=== PATIENT | female | born 1940 | race Caucasian/White ===

== ENCOUNTER 2017-05-27 08:13 | Emergency (ER) | payer MEDICARE, OTHER ==
[~2017-05-27] VITALS: Ht 162.6 cm; Wt 77.2 kg
[~2017-05-27 08:13] MED LIST: CARV3.122 PO; LISI40TA4 PO; LORA0.5T PO; MELA3TAB PO; SYN0.088T PO; TRAM50TA2 PO
[2017-05-27] MEDS ORDERED: ampicillin/sulbac 3gm/NS 100ml 100 ML IV STA (08:22)
[2017-05-27] MEDS ORDERED: gentamicin inj 350 MG in normal saline 100ml IV soln 100 ML IV STA (08:22)
[2017-05-27] MEDS ORDERED: furosemide 10 MG/1 ML 10ml inj IV ONE (08:25)
[2017-05-27 08:38] LABS: BASOPHILS % (AUTO) 0.2 % (0-1); EOSINOPHILS # (AUTO) 0.1 X10'3 (0-0.9); EOSINOPHILS % (AUTO) 1.7 % (0-6); HEMATOCRIT 38.8 % (35.0-45.0); HEMOGLOBIN 12.8 g/dl (12.0-16.0); LYMPHOCYTES # (AUTO) 0.9 X10'3 (1.1-4.8); LYMPHOCYTES % (AUTO) 14.2 % (21-51); MEAN CORPUSCULAR HEMOGLOBIN 28.1 PG (27.0-31.0); MEAN CORPUSCULAR HGB CONC 32.8 % (33.0-36.5); MEAN CORPUSCULAR VOLUME 85.7 FL (78-98); MEAN PLATELET VOLUME 8.7 FL (7.4-10.4); MONOCYTES # (AUTO) 0.5 X10'3 (0-0.9); NEUTROPHILS # (AUTO) 4.8 X10'3 (1.8-7.7); NEUTROPHILS % (AUTO) 75.9 % (42-75); PLATELET COUNT 131 X10'3 (140-440); RED BLOOD COUNT 4.53 X10'6 (4.20-5.60); RED CELL DISTRIBUTION WIDTH 18.1 % (11.5-14.5); WHITE BLOOD COUNT 6.3 X10'3 (4.5-11.0)
[2017-05-27 08:53] VITALS: BP 147/77
[2017-05-27 09:06] LABS: ALANINE AMINOTRANSFERASE 46 U/L (12-78); ALBUMIN 3.4 G/DL (3.4-5.0); ALBUMIN/GLOBULIN RATIO 0.9 (1.1-1.5); ALKALINE PHOSPHATASE 186 IU/L (46-116); ANION GAP 12 (8-16); ASPARTATE AMINO TRANSFERASE 32 U/L (10-37); BILIRUBIN,TOTAL 0.9 MG/DL (0.1-1.0); BLOOD UREA NITROGEN 24 MG/DL (7-18); BUN/CREATININE RATIO 25.5 (6.6-38.0); CALCIUM 9.2 MG/DL (8.5-10.1); CHLORIDE 109 MMOL/L (99-107); CREATININE 0.94 MG/DL (0.40-0.90); GLUCOSE 128 MG/DL (70-104); POTASSIUM 4.4 MMOL/L (3.5-5.1); SODIUM 146 MMOL/L (135-145); TOTAL CARBON DIOXIDE 25.5 MMOL/L (24-32); eGFR 58 ML/MIN
[2017-05-27] MEDS ORDERED: DOXY100C43 PO (09:35)
[2017-05-27] MEDS ORDERED: POTA20TA19 PO (09:35)
[2017-05-27] MEDS ORDERED: FURO40TA4 PO (09:35)
== END 2017-05-27 13:23 | disposition home or self-care (01) ==
LOC: ER 08:13
DX: R60.9 Edema, unspecified (principal); L03.115 Cellulitis of right lower limb; L03.116 Cellulitis of left lower limb; N63.20 Unspecified lump in the left breast, unspecified quadrant; F03.90 Unspecified dementia, unspecified severity, without behavioral disturbance, psychotic disturbance, mood disturbance, and anxiety; E11.9 Type 2 diabetes mellitus without complications; G89.29 Other chronic pain; I10 Essential (primary) hypertension; Z90.710 Acquired absence of both cervix and uterus; Z79.899 Other long term (current) drug therapy; Z60.2 Problems related to living alone
CPT/HCPCS: 36415; 71045; 80053; 83735; 83880; 84145; 84484; 85025; 87070; 87077; 87186; 93005; 96365; 96366; 96375; 99285; J0295; J1580; J1940; J7030; 96367

== ENCOUNTER 2017-11-08 13:10 | Inpatient (IN) | payer MEDICARE, OTHER ==
[~2017-11-08] VITALS: Ht 162.6 cm; Wt 61.8 kg
[~2017-11-08 13:10] MED LIST changes: +FURO40TA4 PO
[2017-11-08 14:11] LABS: BASOPHILS % (AUTO) 0.2 % (0-1); EOSINOPHILS # (AUTO) 0.2 X10'3 (0-0.9); EOSINOPHILS % (AUTO) 2.4 % (0-6); HEMATOCRIT 40.6 % (35.0-45.0); HEMOGLOBIN 13.8 g/dl (12.0-16.0); LYMPHOCYTES # (AUTO) 1.1 X10'3 (1.1-4.8); LYMPHOCYTES % (AUTO) 12.2 % (21-51); MEAN CORPUSCULAR HEMOGLOBIN 30.5 PG (27.0-31.0); MEAN CORPUSCULAR HGB CONC 34.1 % (33.0-36.5); MEAN CORPUSCULAR VOLUME 89.6 FL (78-98); MEAN PLATELET VOLUME 8.6 FL (7.4-10.4); MONOCYTES # (AUTO) 0.9 X10'3 (0-0.9); MONOCYTES % (AUTO) 9.7 % (2-12); NEUTROPHILS # (AUTO) 6.9 X10'3 (1.8-7.7); NEUTROPHILS % (AUTO) 75.5 % (42-75); PLATELET COUNT 222 X10'3 (140-440); RED BLOOD COUNT 4.53 X10'6 (4.20-5.60); RED CELL DISTRIBUTION WIDTH 15.2 % (11.5-14.5); WHITE BLOOD COUNT 9.1 X10'3 (4.5-11.0)
[2017-11-08 14:19] LABS: PARTIAL THROMBOPLASTIN TIME 31 SECONDS (22-32); PROTHROMBIN TIME 10.7 SECONDS (9.0-12.0)
[2017-11-08 14:41] LABS: ALANINE AMINOTRANSFERASE 30 U/L (12-78); ALBUMIN 3.3 G/DL (3.4-5.0); ALBUMIN/GLOBULIN RATIO 0.8 (1.1-1.5); ALKALINE PHOSPHATASE 108 IU/L (46-116); ANION GAP 9 (8-16); ASPARTATE AMINO TRANSFERASE 32 U/L (10-37); BILIRUBIN,TOTAL 0.9 MG/DL (0.1-1.0); BLOOD UREA NITROGEN 39 MG/DL (7-18); BUN/CREATININE RATIO 25.3 (6.6-38.0); CALCIUM 9.9 MG/DL (8.5-10.1); CHLORIDE 100 MMOL/L (99-107); CREATININE 1.54 MG/DL (0.40-0.90); GLUCOSE 106 MG/DL (70-104); POTASSIUM 4.6 MMOL/L (3.5-5.1); SODIUM 138 MMOL/L (135-145); TOTAL CARBON DIOXIDE 28.9 MMOL/L (24-32); TOTAL PROTEIN 7.7 G/DL (6.4-8.2); eGFR 33 ML/MIN
[2017-11-08] MEDS ORDERED: normal saline 1000ML IV soln IVB ONE (14:50)
[2017-11-08 15:00] LABS: CLARITY,URINE CLEAR (Clear); COLOR,URINE YELLOW (Yellow); GLUCOSE, URINE NEGATIVE (Neg); KETONES,URINE NEGATIVE (Neg); LEUKOCYTE ESTERASE ,URINE NEGATIVE (Neg); NITRITES, URINE NEGATIVE (Neg); OCCULT BLOOD,URINE NEGATIVE (Neg); PROTEIN,URINE NEGATIVE (Neg); UA COLLECTION TYPE STRAIGHT CATH; UROBILINOGEN,URINE 0.2 E.U/dL (0.2-1.0)
[2017-11-08] MEDS ORDERED: magnesium citrate 296ml oral solution PO ONE (17:20)
[2017-11-08] MEDS ORDERED: dextrose 5%-1/2 normal saline 1,000 ML IV SCH (19:06)
[2017-11-08] MEDS ORDERED: morphine 2 MG/ML inj. syringe IV PRN (19:10)
[2017-11-08] MEDS ORDERED: mag hydrox/Alum hydrox/simeth 30ml oral suspension PO PRN (19:10)
[2017-11-08] MEDS ORDERED: magnesium hydroxide 30ml (MOM) UD suspension PO PRN (19:10)
[2017-11-08] MEDS ORDERED: ondansetron/PF 4mg/2ml inj IV PRN (19:10)
[2017-11-08] MEDS: bisacodyl 10mg suppository rectal RC SCH (21:19)
[2017-11-09] MEDS ORDERED: MULT-1085 PO (00:23)
[2017-11-09] MEDS ORDERED: TEMA15CA5 PO (00:23)
[2017-11-09] MEDS ORDERED: POTA10CA44 PO (00:23)
[2017-11-09] MEDS ORDERED: ASCO500C17 (00:29)
[2017-11-09] MEDS ORDERED: ACET-2119 PO (00:29)
[2017-11-09] MEDS ORDERED: LEVO50TA8 PO (00:31)
[2017-11-09 00:35] VITALS: BP 122/70
[2017-11-09 02:00] VITALS: BP 129/63
[2017-11-09 05:57] LABS: BASOPHILS % (AUTO) 0.3 % (0-1); EOSINOPHILS # (AUTO) 0.2 X10'3 (0-0.9); EOSINOPHILS % (AUTO) 2.2 % (0-6); HEMATOCRIT 39.1 % (35.0-45.0); HEMOGLOBIN 13.4 g/dl (12.0-16.0); LYMPHOCYTES # (AUTO) 0.9 X10'3 (1.1-4.8); LYMPHOCYTES % (AUTO) 9.6 % (21-51); MEAN CORPUSCULAR HEMOGLOBIN 30.6 PG (27.0-31.0); MEAN CORPUSCULAR HGB CONC 34.1 % (33.0-36.5); MEAN CORPUSCULAR VOLUME 89.5 FL (78-98); MEAN PLATELET VOLUME 8.7 FL (7.4-10.4); MONOCYTES # (AUTO) 0.8 X10'3 (0-0.9); MONOCYTES % (AUTO) 8.7 % (2-12); NEUTROPHILS # (AUTO) 7.7 X10'3 (1.8-7.7); NEUTROPHILS % (AUTO) 79.2 % (42-75); PLATELET COUNT 193 X10'3 (140-440); RED BLOOD COUNT 4.37 X10'6 (4.20-5.60); WHITE BLOOD COUNT 9.8 X10'3 (4.5-11.0)
[2017-11-09 06:00] VITALS: BP 134/54
[2017-11-09 06:21] LABS: ANION GAP 10 (8-16); BLOOD UREA NITROGEN 34 MG/DL (7-18); BUN/CREATININE RATIO 28.3 (6.6-38.0); CALCIUM 8.6 MG/DL (8.5-10.1); CHLORIDE 103 MMOL/L (99-107); GLUCOSE 172 MG/DL (70-104); LDL CHOLESTEROL 76 MG/DL (50-100); POTASSIUM 4.8 MMOL/L (3.5-5.1); SODIUM 140 MMOL/L (135-145); TOTAL CARBON DIOXIDE 27.5 MMOL/L (24-32); eGFR 44 ML/MIN
[2017-11-09] MEDS: normal saline 1000ml 1,000 ML IV SCH (09:27)
[2017-11-09] MEDS: bisacodyl 10mg suppository rectal RC SCH (09:29)
[2017-11-09 10:00] VITALS: BP 119/59
[2017-11-09 18:00] VITALS: BP 146/99
[2017-11-09 22:00] VITALS: BP 128/69
[2017-11-10] MEDS: normal saline 1000ml 1,000 ML IV SCH ×4 (04:20→22:05)
[2017-11-10] MEDS: morphine 2 MG/ML inj. syringe IV PRN ×2 (05:19→08:55)
[2017-11-10 06:00] VITALS: BP 150/62
[2017-11-10 06:09] LABS: BASOPHILS % (AUTO) 0.3 % (0-1); EOSINOPHILS # (AUTO) 0.1 X10'3 (0-0.9); EOSINOPHILS % (AUTO) 1.8 % (0-6); HEMATOCRIT 36.5 % (35.0-45.0); HEMOGLOBIN 12.5 g/dl (12.0-16.0); LYMPHOCYTES # (AUTO) 0.9 X10'3 (1.1-4.8); LYMPHOCYTES % (AUTO) 12.2 % (21-51); MEAN CORPUSCULAR HEMOGLOBIN 30.9 PG (27.0-31.0); MEAN CORPUSCULAR HGB CONC 34.3 % (33.0-36.5); MEAN CORPUSCULAR VOLUME 90.2 FL (78-98); MEAN PLATELET VOLUME 8.5 FL (7.4-10.4); MONOCYTES # (AUTO) 0.7 X10'3 (0-0.9); MONOCYTES % (AUTO) 8.9 % (2-12); NEUTROPHILS # (AUTO) 5.7 X10'3 (1.8-7.7); NEUTROPHILS % (AUTO) 76.8 % (42-75); PLATELET COUNT 160 X10'3 (140-440); RED BLOOD COUNT 4.04 X10'6 (4.20-5.60); WHITE BLOOD COUNT 7.4 X10'3 (4.5-11.0)
[2017-11-10 06:32] LABS: ALBUMIN 2.9 G/DL (3.4-5.0); ANION GAP 9 (8-16); BLOOD UREA NITROGEN 31 MG/DL (7-18); BUN/CREATININE RATIO 25.6 (6.6-38.0); CALCIUM 8.5 MG/DL (8.5-10.1); CHLORIDE 106 MMOL/L (99-107); CREATININE 1.21 MG/DL (0.40-0.90); GLUCOSE 150 MG/DL (70-104); POTASSIUM 4.5 MMOL/L (3.5-5.1); SODIUM 141 MMOL/L (135-145); TOTAL CARBON DIOXIDE 25.6 MMOL/L (24-32); eGFR 43 ML/MIN
[2017-11-10] MEDS: levoTHYROXINE 112mcg tablet PO SCH (08:18)
[2017-11-10] MEDS: levoTHYROXINE 25mcg tablet PO SCH (08:19)
[2017-11-10] MEDS: multivitamins, therapeutics tablet PO SCH (08:19)
[2017-11-10] MEDS: bisacodyl 10mg suppository rectal RC SCH (08:21)
[2017-11-10] MEDS: LIDOcaine 5% patch TP SCH (08:21)
[2017-11-10 10:00] VITALS: BP 160/76
[2017-11-10] MEDS: aspirin 81mg tab.chew PO SCH (12:28)
[2017-11-10] MEDS: acetaminophen 325mg tablet PO PRN ×2 (12:29→19:37)
[2017-11-10] MEDS ORDERED: magnesium citrate 296ml oral solution PO ONE (17:15)
[2017-11-10 18:00] VITALS: BP 154/66
[2017-11-10] MEDS ORDERED: acetaminophen 325mg tablet PO PRN (18:15)
[2017-11-10] MEDS ORDERED: temazepam 15mg capsule PO SCH (21:00)
[2017-11-10 22:00] VITALS: BP 157/63
[2017-11-11 02:00] VITALS: BP 148/71
[2017-11-11 05:16] LABS: BASOPHILS % (AUTO) 0.6 % (0-1); EOSINOPHILS # (AUTO) 0.2 X10'3 (0-0.9); EOSINOPHILS % (AUTO) 2.9 % (0-6); HEMATOCRIT 37.3 % (35.0-45.0); HEMOGLOBIN 12.6 g/dl (12.0-16.0); LYMPHOCYTES # (AUTO) 0.9 X10'3 (1.1-4.8); LYMPHOCYTES % (AUTO) 15.5 % (21-51); MEAN CORPUSCULAR HEMOGLOBIN 30.5 PG (27.0-31.0); MEAN CORPUSCULAR HGB CONC 33.9 % (33.0-36.5); MONOCYTES # (AUTO) 0.5 X10'3 (0-0.9); MONOCYTES % (AUTO) 7.9 % (2-12); NEUTROPHILS # (AUTO) 4.2 X10'3 (1.8-7.7); NEUTROPHILS % (AUTO) 73.1 % (42-75); PLATELET COUNT 160 X10'3 (140-440); RED BLOOD COUNT 4.14 X10'6 (4.20-5.60); RED CELL DISTRIBUTION WIDTH 14.8 % (11.5-14.5); WHITE BLOOD COUNT 5.7 X10'3 (4.5-11.0)
[2017-11-11 05:42] LABS: ALBUMIN 2.8 G/DL (3.4-5.0); ANION GAP 6 (8-16); BLOOD UREA NITROGEN 33 MG/DL (7-18); BUN/CREATININE RATIO 24.1 (6.6-38.0); CALCIUM 8.6 MG/DL (8.5-10.1); CHLORIDE 108 MMOL/L (99-107); CHOL/HDL RATIO 3.5 (0.00-4.99); CHOLESTEROL 128 MG/DL (0-200); CREATININE 1.37 MG/DL (0.40-0.90); GLUCOSE 123 MG/DL (70-104); HDL CHOLESTEROL 37 MG/DL (35-60); LDL CHOLESTEROL 77 MG/DL (50-100); POTASSIUM 4.3 MMOL/L (3.5-5.1); SODIUM 143 MMOL/L (135-145); TOTAL CARBON DIOXIDE 28.8 MMOL/L (24-32); TRIGLYCERIDES 122 MG/DL (20-135); eGFR 37 ML/MIN
[2017-11-11 06:00] VITALS: BP 123/77
[2017-11-11] MEDS: levoTHYROXINE 25mcg tablet PO SCH (07:53)
[2017-11-11] MEDS: levoTHYROXINE 112mcg tablet PO SCH (07:53)
[2017-11-11] MEDS: multivitamins, therapeutics tablet PO SCH (07:53)
[2017-11-11] MEDS: aspirin 81mg tab.chew PO SCH (07:53)
[2017-11-11] MEDS: normal saline 1000ml 1,000 ML IV SCH (07:56)
[2017-11-11] MEDS: LIDOcaine 5% patch TP SCH (07:57)
[2017-11-11] MEDS ORDERED: ASPI-1265 PO (08:13)
[2017-11-11] MEDS ORDERED: MAGN400O6 PO (08:13)
[2017-11-11] MEDS ORDERED: ATOR10TA PO (08:13)
[2017-11-11] MEDS: bisacodyl 10mg suppository rectal RC SCH (09:19)
[2017-11-11 10:00] VITALS: BP 128/55
[2017-11-11] MEDS: morphine 2 MG/ML inj. syringe IV PRN (11:56)
[2017-11-11 12:00] VITALS: BP_SYST 162; BP_SYST 169; BP_SYST 177; BP_DIAS 102; BP_DIAS 85; BP_DIAS 88
[2017-11-12] MEDS ORDERED: atorvastatin 10mg tablet PO SCH (08:00)
== END 2017-11-11 14:15 | disposition home health service (06) | DRG 682 ==
LOC: ER 13:11 → ED HOLD 19:06 → EDBEDREQ 23:16 → ORTHO 4S 11-09 00:39
PROVIDERS: ADMIT Internal Medicine; ATTEND Internal Medicine
DX: N17.9 Acute kidney failure, unspecified (principal); I63.9 Cerebral infarction, unspecified; G93.49 Other encephalopathy; I13.0 Hypertensive heart and chronic kidney disease with heart failure and stage 1 through stage 4 chronic kidney disease, or unspecified chronic kidney disease; I50.22 Chronic systolic (congestive) heart failure; N13.30 Unspecified hydronephrosis; G89.29 Other chronic pain; M54.9 Dorsalgia, unspecified; K59.09 Other constipation; E03.9 Hypothyroidism, unspecified; E11.22 Type 2 diabetes mellitus with diabetic chronic kidney disease; F03.90 Unspecified dementia, unspecified severity, without behavioral disturbance, psychotic disturbance, mood disturbance, and anxiety; I65.23 Occlusion and stenosis of bilateral carotid arteries; Z60.2 Problems related to living alone; K80.20 Calculus of gallbladder without cholecystitis without obstruction; N18.3 Chronic kidney disease, stage 3 (moderate); N28.82 Megaloureter; Z90.710 Acquired absence of both cervix and uterus; Z79.899 Other long term (current) drug therapy; Z79.82 Long term (current) use of aspirin; Z87.440 Personal history of urinary (tract) infections; Z83.3 Family history of diabetes mellitus
CPT/HCPCS: 36415; 70450; 70544; 70551; 71045; 74176; 80048; 80053; 80061; 81003; 82948; 83605; 83721; 84145; 84443; 84484; 85025; 85610; 85730; 87040; 87070; 93005; 93306; 93880; 96360; 97110; 97161; 97530; 97535; 99285; A6212; A6258; J2270; J7030

== ENCOUNTER 2018-02-10 18:52 | Emergency (ER) | payer MEDICARE, OTHER ==
[~2018-02-10] VITALS: Ht 162.6 cm; Wt 50.0 kg
[~2018-02-10 18:52] MED LIST changes: +ACET-2119 PO; +ASCO500C17; +ASPI-1265 PO; +ATOR10TA PO; -CARV3.122 PO; +CEPH500C5 PO; +LEVO50TA8 PO; -LISI40TA4 PO; -LORA0.5T PO; +MAGN400O6 PO; -MELA3TAB PO; +MULT-1085 PO; +POTA10CA44 PO; +TEMA15CA5 PO; -TRAM50TA2 PO
[2018-02-10 19:20] VITALS: BP 141/78
[2018-02-10] MEDS ORDERED: traMADol 50MG tablet PO ONE (19:30)
[2018-02-10] MEDS ORDERED: acetaminophen 325mg tablet PO ONE (20:05)
== END 2018-02-10 21:52 | disposition home or self-care (01) ==
LOC: ER 18:53
DX: S05.11XA Contusion of eyeball and orbital tissues, right eye, initial encounter (principal); I10 Essential (primary) hypertension; E11.9 Type 2 diabetes mellitus without complications; G89.29 Other chronic pain; Z90.710 Acquired absence of both cervix and uterus; Z79.82 Long term (current) use of aspirin; Z79.899 Other long term (current) drug therapy; Z60.2 Problems related to living alone; W18.39XA Other fall on same level, initial encounter; Y93.89 Activity, other specified; Y92.89 Other specified places as the place of occurrence of the external cause; Y99.8 Other external cause status
CPT/HCPCS: 70450; 99284

== ENCOUNTER 2018-02-17 09:01 | Inpatient (IN) | payer MEDICARE, OTHER ==
[~2018-02-17] VITALS: Ht 162.6 cm; Wt 71.0 kg
--- NOTE | 2018-02-17 09:14 | NUR ---
patient to ct.
[2018-02-17] MEDS ORDERED: LEVO25TA2 PO (09:24)
--- NOTE | 2018-02-17 09:24 | NUR ---
med rec completed.
[2018-02-17] MEDS ORDERED: fentaNYL/PF 50MCG/1 ML 2ML syringe IV ONE ×2 (09:30→12:55)
--- NOTE | 2018-02-17 09:31 | NUR ---
xray at [facility].
[2018-02-17 10:11] LABS: BASOPHILS % (AUTO) 0.4 % (0-1); EOSINOPHILS # (AUTO) 0.2 X10'3 (0-0.9); HEMATOCRIT 29.2 % (35.0-45.0); HEMOGLOBIN 9.8 g/dl (12.0-16.0); LYMPHOCYTES % (AUTO) 12.2 % (21-51); MEAN CORPUSCULAR HEMOGLOBIN 32.1 PG (27.0-31.0); MEAN CORPUSCULAR HGB CONC 33.6 % (33.0-36.5); MEAN CORPUSCULAR VOLUME 95.6 FL (78-98); MEAN PLATELET VOLUME 7.7 FL (7.4-10.4); MONOCYTES # (AUTO) 0.4 X10'3 (0-0.9); NEUTROPHILS # (AUTO) 6.6 X10'3 (1.8-7.7); NEUTROPHILS % (AUTO) 80.4 % (42-75); PLATELET COUNT 326 X10'3 (140-440); RED BLOOD COUNT 3.06 X10'6 (4.20-5.60); RED CELL DISTRIBUTION WIDTH 17.7 % (11.5-14.5); WHITE BLOOD COUNT 8.2 X10'3 (4.5-11.0)
[2018-02-17 10:24] LABS: PARTIAL THROMBOPLASTIN TIME 28 SECONDS (22-32); PROTHROMBIN TIME 10.6 SECONDS (9.0-12.0)
[2018-02-17 10:26] LABS: ALANINE AMINOTRANSFERASE 28 U/L (12-78); ALBUMIN 3.6 G/DL (3.4-5.0); ALBUMIN/GLOBULIN RATIO 0.8 (1.1-1.5); ALKALINE PHOSPHATASE 130 IU/L (46-116); ANION GAP 9 (8-16); ASPARTATE AMINO TRANSFERASE 24 U/L (10-37); BILIRUBIN,TOTAL 0.8 MG/DL (0.1-1.0); BLOOD UREA NITROGEN 25 MG/DL (7-18); BUN/CREATININE RATIO 26.6 (6.6-38.0); CALCIUM 9.6 MG/DL (8.5-10.1); CHLORIDE 103 MMOL/L (99-107); CREATININE 0.94 MG/DL (0.40-0.90); GLUCOSE 162 MG/DL (70-104); POTASSIUM 4.3 MMOL/L (3.5-5.1); SODIUM 142 MMOL/L (135-145); TOTAL CARBON DIOXIDE 29.6 MMOL/L (24-32); TOTAL PROTEIN 7.9 G/DL (6.4-8.2); eGFR 58 ML/MIN
[2018-02-17] MEDS ORDERED: atropine 1 MG/1 ML vial IV ONE ×2 (10:35→10:40)
--- NOTE | 2018-02-17 10:46 | NUR ---
patient diana 37-[address] Vuong aware.rios cath placecd 16 fr, patient tolerated well.We will monitor.
--- NOTE | 2018-02-17 10:50 | NUR ---
med not int he omni.
[2018-02-17 11:01] LABS: CLARITY,URINE CLEAR (Clear); COLOR,URINE YELLOW (Yellow); GLUCOSE, URINE NEGATIVE (Neg); KETONES,URINE NEGATIVE (Neg); LEUKOCYTE ESTERASE ,URINE NEGATIVE (Neg); NITRITES, URINE NEGATIVE (Neg); OCCULT BLOOD,URINE NEGATIVE (Neg); PH,URINE 6.5 (4.8-8.0); PROTEIN,URINE NEGATIVE (Neg); UROBILINOGEN,URINE 0.2 E.U/dL (0.2-1.0)
[2018-02-17 11:03] LABS: UA COLLECTION TYPE FOLEY CATH
--- NOTE | 2018-02-17 11:11 | NUR ---
hr 65 nsr after atropine.
[2018-02-17] MEDS ORDERED: HYDROcodone/acetaminophen 5mg/325mg tablet PO PRN (11:15)
[2018-02-17] MEDS ORDERED: morphine 4 MG/ML inj SYRINge IV PRN ×3 (11:15→18:45)
[2018-02-17] MEDS ORDERED: ondansetron/PF 4mg/2ml inj IV PRN (11:15)
[2018-02-17] MEDS ORDERED: mag hydrox/Alum hydrox/simeth 30ml oral suspension PO PRN (11:15)
[2018-02-17] MEDS ORDERED: acetaminophen 325mg tablet PO PRN ×2 (11:15)
[2018-02-17] MEDS: normal saline 1000ml 1,000 ML IV SCH ×2 (11:41→23:07)
--- NOTE | 2018-02-17 12:31 | NUR ---
daughter at bedside.
--- NOTE | 2018-02-17 13:24 | NUR ---
ATTEMPTED TO CALL REPORT,SPOKE WITH NEREYDA INIGUEZ,WILL CALL HER AGAIN IN 10 MINUTES.
--- NOTE | 2018-02-17 13:42 | NUR ---
ATTEMPTED REPORT, NURSE TO CALL BACK
--- NOTE | 2018-02-17 14:14 | NUR ---
REPORT TO GAYATHRI INIGUEZ
--- NOTE | 2018-02-17 14:15 | NUR ---
Received report from Cecily INIGUEZ in ER
--- NOTE | 2018-02-17 14:19 | NUR ---
emptied rios of 700ml of yellow urine, pt to floor
[2018-02-17 14:30] VITALS: BP 131/47
[2018-02-17] MEDS: HYDROcodone/acetaminophen 10/325mg tab PO PRN ×2 (17:17→23:01)
--- NOTE | 2018-02-17 18:00 | NUR ---
Problems reprioritized. Patient report given, questions answered & plan of care reviewed with Kylee Ortiz RN.
--- NOTE | 2018-02-17 18:30 | NUR ---
Patient in room ORTHO 4018. I have received report from HIRA TRINH and had the opportunity to ask questions and assume patient care.
[2018-02-17] MEDS: morphine 4 MG/ML inj SYRINge IV PRN ×2 (18:57→21:36)
[2018-02-17] MEDS ORDERED: HYDROmorphone 1 mg/ml syringe IV ONE (19:50)
[2018-02-17 22:00] VITALS: BP 159/61
[2018-02-17] MEDS: temazepam 15mg capsule PO PRN (23:01)
[2018-02-18] VITALS (12 sets, daily range): BP systolic 87–144; BP diastolic 36–58
[2018-02-18] MEDS: HYDROmorphone 1 mg/ml syringe IV PRN ×4 (00:30→15:51)
--- NOTE | 2018-02-18 01:16 | NUR ---
PATIENT HAS BEEN SCRATCHING AT BUTTOCKS. NOTED SCRATCH SRINIVASAN NOTED ON BILATERAL BUTTOCKS
--- NOTE | 2018-02-18 01:52 | NUR ---
KACEY DONALDSON; [id number] NAIL[address] CARO STILL YELLING. I BELIEVE THIS IS A BEHAVIOR NOT PAIN. PATIENT HAS HAD 2MG DILAUDID, 8 MG MORPHINE, 2 OF 10/325 MG NORCO AND 1 15 MG RESTORIL AND STILL YELLING. SHE DIXON NO ALLERGIES. SEVERE DEMENTIA. CALL [phone] RICHY
[2018-02-18] MEDS ORDERED: LORazepam 2 mg/ml vial IM ONE (01:55)
--- NOTE | 2018-02-18 02:29 | NUR ---
SPOKE WITH REGARDING PATIENT HAVING BEHAVIORS MORE THEN PAIN. GOT AN ORDER FOR TWO 1 TIME DOSE OF ATIVAN 0.5 MG. PATIENT CONTINUES TO SCRATCH AT SELF ON BELLY AND ARMS AND BUTTOCKS.
[2018-02-18] MEDS ORDERED: LORazepam 2 mg/ml vial IV ONE (03:00)
[2018-02-18] MEDS: HYDROcodone/acetaminophen 10/325mg tab PO PRN ×3 (03:39→20:55)
--- NOTE | 2018-02-18 06:18 | NUR ---
Problems reprioritized. Patient report given, questions answered & plan of care reviewed with HIRA TRINH.
[2018-02-18] MEDS: multivitamins, therapeutics tablet PO SCH (08:00)
[2018-02-18] MEDS: levoTHYROXINE 25mcg tablet PO SCH (08:00)
[2018-02-18] MEDS ORDERED: aspirin 81mg tab.chew PO SCH (08:30)
[2018-02-18] MEDS ORDERED: ringers solution, lacted 1,000 ML IV ONE (09:33)
[2018-02-18] MEDS ORDERED: ringers solution, lacted 1,000 ML IV SCH (09:36)
[2018-02-18] MEDS ORDERED: morphine 4 MG/ML inj SYRINge IV PRN ×2 (09:40)
[2018-02-18] MEDS ORDERED: meperidine/PF 25mg/ml syringe IV PRN ×3 (09:40)
[2018-02-18] MEDS ORDERED: proCHLORperazine 10 MG/2 ml inj IV PRN (09:40)
[2018-02-18] MEDS ORDERED: ondansetron/PF 4mg/2ml inj IV PRN (09:40)
[2018-02-18] MEDS ORDERED: MIDAZolam 5mg/5ml vial ONE (11:01)
[2018-02-18] MEDS ORDERED: fentaNYL/PF 50MCG/1 ML 2ML syringe ONE (11:01)
[2018-02-18 11:02] LABS: BASOPHILS % (AUTO) 0.5 % (0-1); EOSINOPHILS # (AUTO) 0.2 X10'3 (0-0.9); EOSINOPHILS % (AUTO) 2.5 % (0-6); HEMATOCRIT 28.2 % (35.0-45.0); HEMOGLOBIN 9.1 g/dl (12.0-16.0); LYMPHOCYTES # (AUTO) 1.1 X10'3 (1.1-4.8); LYMPHOCYTES % (AUTO) 11.9 % (21-51); MEAN CORPUSCULAR HGB CONC 32.5 % (33.0-36.5); MEAN CORPUSCULAR VOLUME 95.6 FL (78-98); MEAN PLATELET VOLUME 7.7 FL (7.4-10.4); MONOCYTES # (AUTO) 0.8 X10'3 (0-0.9); MONOCYTES % (AUTO) 8.6 % (2-12); NEUTROPHILS # (AUTO) 7.1 X10'3 (1.8-7.7); NEUTROPHILS % (AUTO) 76.5 % (42-75); PLATELET COUNT 284 X10'3 (140-440); RED BLOOD COUNT 2.95 X10'6 (4.20-5.60); RED CELL DISTRIBUTION WIDTH 17.4 % (11.5-14.5); WHITE BLOOD COUNT 9.2 X10'3 (4.5-11.0)
[2018-02-18 11:28] LABS: ALANINE AMINOTRANSFERASE 25 U/L (12-78); ALBUMIN 3.2 G/DL (3.4-5.0); ALBUMIN/GLOBULIN RATIO 0.8 (1.1-1.5); ALKALINE PHOSPHATASE 114 IU/L (46-116); ANION GAP 10 (8-16); ASPARTATE AMINO TRANSFERASE 25 U/L (10-37); BILIRUBIN,TOTAL 0.9 MG/DL (0.1-1.0); BLOOD UREA NITROGEN 18 MG/DL (7-18); CALCIUM 9.1 MG/DL (8.5-10.1); CHLORIDE 106 MMOL/L (99-107); CREATININE 0.82 MG/DL (0.40-0.90); GLUCOSE 144 MG/DL (70-104); POTASSIUM 4.4 MMOL/L (3.5-5.1); SODIUM 143 MMOL/L (135-145); TOTAL CARBON DIOXIDE 27.1 MMOL/L (24-32); TOTAL PROTEIN 7.1 G/DL (6.4-8.2); eGFR 68 ML/MIN
--- NOTE | 2018-02-18 11:55 | NUR ---
Received from OR via BED , accompanied by Anesthesiologist DR FORRESTER and report given by Anesthesiolgist. PATIENT WAKING UP, NO S/S OF PAIN, V/S STABLE, NEUROVASCULAR CHECKS INTACT, 20G PIV RUE, F/C DRAINING CLEAR YELLOW URINE. DRESSING TO RIGHT HIP X2 CDI.
--- NOTE | 2018-02-18 12:55 | NUR ---
PATIENT AWAKE BUT CONFUSED, NO S/S OF PAIN, V/S STABLE, NEUROVASCULAR CHECKS INTACT, 20G PIV RUE, F/C DRAINING CLEAR YELLOW URINE. DRESSING TO RIGHT HIP X2 CDI. PATIENT TAKEN TO 4018 WITH ALL BELONGINGS AND HOOKED UP TO MONITORS IN ROOM AND REPORT GIVEN TO GAYATHRI INIGUEZ WHO HAS TAKEN OVER PATIENT CARE.
[2018-02-18] MEDS ORDERED: ALPR-160 PO (13:30)
--- NOTE | 2018-02-18 13:36 | NUR ---
Paged Dr. Taylor. [phone]. Patient back from surgery. Patient very anxious, Takes Xanax at home, but it wasn't continued. Can we continue it? Annabelle [phone]
[2018-02-18] MEDS: normal saline 1000ml 1,000 ML IV SCH (14:01)
--- NOTE | 2018-02-18 14:11 | NUR ---
Paged Dr Taylor again [phone]. Severe anxiety/dementia. Can we continue her Xanax home med? Patient is pulling on lines, trying to get out of bed. Annabelle [phone]
[2018-02-18] MEDS: ALPRAZolam 0.25mg tablet PO PRN ×2 (15:04→20:55)
[2018-02-18] MEDS: ceFAZolin 1GM/D5W- ADD-VANTAGE 50 ML IV SCH ×2 (16:37→23:25)
--- NOTE | 2018-02-18 18:05 | NUR ---
Received report from HIRA Alanis.
--- NOTE | 2018-02-18 18:39 | NUR ---
Problems reprioritized. Patient report given, questions answered & plan of care reviewed with Kylee Ortiz RN.
[2018-02-18] MEDS: temazepam 15mg capsule PO PRN (20:54)
[2018-02-19] MEDS: HYDROmorphone 1 mg/ml syringe IV PRN ×2 (00:21→22:34)
--- NOTE | 2018-02-19 00:23 | NUR ---
PATIENT HAS BEEN SCRATCHING AT ARMS CAUSING SOME INJURY TO SKIN WITH NEW SKIN TEAR TO LFA. CLEANED AND BANDAID APPLIED. WILL CONTINUE TO MONITOR.
--- NOTE | 2018-02-19 02:54 | NUR ---
Cleansed and new dressing applied to wounds on bilateral arms. Tuesday pic taken. Wounds have been draining with wounds appear to be healing at this time. Will continue to monitor.
[2018-02-19] MEDS: ALPRAZolam 0.25mg tablet PO PRN ×2 (03:02→22:21)
[2018-02-19] MEDS: HYDROcodone/acetaminophen 10/325mg tab PO PRN ×3 (03:03→19:48)
[2018-02-19] MEDS: normal saline 1000ml 1,000 ML IV SCH ×2 (03:04→19:53)
[2018-02-19 06:00] VITALS: BP 103/64
--- NOTE | 2018-02-19 06:34 | NUR ---
Problems reprioritized. Patient report given, questions answered & plan of care reviewed with HIRA Ennis.
[2018-02-19 07:23] LABS: ALBUMIN 2.9 G/DL (3.4-5.0); ANION GAP 9 (8-16); BLOOD UREA NITROGEN 15 MG/DL (7-18); BUN/CREATININE RATIO 16.3 (6.6-38.0); CALCIUM 8.9 MG/DL (8.5-10.1); CHLORIDE 106 MMOL/L (99-107); CREATININE 0.92 MG/DL (0.40-0.90); GLUCOSE 145 MG/DL (70-104); POTASSIUM 3.8 MMOL/L (3.5-5.1); SODIUM 142 MMOL/L (135-145); TOTAL CARBON DIOXIDE 27.2 MMOL/L (24-32); eGFR 59 ML/MIN
[2018-02-19 07:24] LABS: BASOPHILS % (AUTO) 0.5 % (0-1); EOSINOPHILS # (AUTO) 0.2 X10'3 (0-0.9); HEMATOCRIT 22.2 % (35.0-45.0); HEMOGLOBIN 7.2 g/dl (12.0-16.0); LYMPHOCYTES # (AUTO) 0.8 X10'3 (1.1-4.8); MEAN CORPUSCULAR HEMOGLOBIN 30.7 PG (27.0-31.0); MEAN CORPUSCULAR HGB CONC 32.2 % (33.0-36.5); MEAN CORPUSCULAR VOLUME 95.2 FL (78-98); MEAN PLATELET VOLUME 7.6 FL (7.4-10.4); MONOCYTES # (AUTO) 0.6 X10'3 (0-0.9); MONOCYTES % (AUTO) 7.7 % (2-12); NEUTROPHILS # (AUTO) 6.5 X10'3 (1.8-7.7); NEUTROPHILS % (AUTO) 79.8 % (42-75); PLATELET COUNT 204 X10'3 (140-440); RED BLOOD COUNT 2.34 X10'6 (4.20-5.60); RED CELL DISTRIBUTION WIDTH 16.9 % (11.5-14.5); WHITE BLOOD COUNT 8.1 X10'3 (4.5-11.0)
[2018-02-19] MEDS: aspirin 325mg tablet, delayed-release (Ecotrin) PO SCH (08:43)
[2018-02-19] MEDS: levoTHYROXINE 25mcg tablet PO SCH (08:43)
[2018-02-19] MEDS: multivitamins, therapeutics tablet PO SCH (08:43)
[2018-02-19 10:00] VITALS: BP 106/50
[2018-02-19 14:00] VITALS: BP 142/49
[2018-02-19 18:00] VITALS: BP 132/54
[2018-02-19 18:06] LABS: HEMATOCRIT 23.7 % (35.0-45.0); HEMOGLOBIN 7.5 g/dl (12.0-16.0); MEAN CORPUSCULAR HGB CONC 31.7 % (33.0-36.5); MEAN CORPUSCULAR VOLUME 94.8 FL (78-98); MEAN PLATELET VOLUME 7.3 FL (7.4-10.4); PLATELET COUNT 241 X10'3 (140-440); RED BLOOD COUNT 2.49 X10'6 (4.20-5.60); RED CELL DISTRIBUTION WIDTH 16.7 % (11.5-14.5); WHITE BLOOD COUNT 9.4 X10'3 (4.5-11.0)
--- NOTE | 2018-02-19 18:20 | NUR ---
Report to Sobeida INIGUEZ
[2018-02-19 22:00] VITALS: BP 107/43
[2018-02-20] MEDS: HYDROcodone/acetaminophen 10/325mg tab PO PRN ×4 (01:11→22:23)
[2018-02-20] MEDS: HYDROmorphone 1 mg/ml syringe IV PRN ×4 (02:29→20:00)
--- NOTE | 2018-02-20 06:33 | NUR ---
Problems reprioritized. Patient report given, questions answered & plan of care reviewed with HIRA JEFFRIES.
[2018-02-20 07:00] VITALS: BP 128/56
[2018-02-20 07:31] LABS: BASOPHILS % (AUTO) 0.5 % (0-1); EOSINOPHILS # (AUTO) 0.3 X10'3 (0-0.9); EOSINOPHILS % (AUTO) 2.9 % (0-6); HEMATOCRIT 22.5 % (35.0-45.0); HEMOGLOBIN 7.5 g/dl (12.0-16.0); LYMPHOCYTES # (AUTO) 1.1 X10'3 (1.1-4.8); LYMPHOCYTES % (AUTO) 10.8 % (21-51); MEAN CORPUSCULAR HEMOGLOBIN 31.7 PG (27.0-31.0); MEAN CORPUSCULAR HGB CONC 33.3 % (33.0-36.5); MEAN CORPUSCULAR VOLUME 95.1 FL (78-98); MEAN PLATELET VOLUME 7.8 FL (7.4-10.4); MONOCYTES # (AUTO) 0.9 X10'3 (0-0.9); MONOCYTES % (AUTO) 8.9 % (2-12); NEUTROPHILS # (AUTO) 7.5 X10'3 (1.8-7.7); NEUTROPHILS % (AUTO) 76.9 % (42-75); PLATELET COUNT 245 X10'3 (140-440); RED BLOOD COUNT 2.37 X10'6 (4.20-5.60); RED CELL DISTRIBUTION WIDTH 16.6 % (11.5-14.5); WHITE BLOOD COUNT 9.8 X10'3 (4.5-11.0)
[2018-02-20 07:35] LABS: ALBUMIN 2.6 G/DL (3.4-5.0); ANION GAP 7 (8-16); BLOOD UREA NITROGEN 13 MG/DL (7-18); BUN/CREATININE RATIO 14.4 (6.6-38.0); CALCIUM 8.8 MG/DL (8.5-10.1); CHLORIDE 108 MMOL/L (99-107); GLUCOSE 135 MG/DL (70-104); POTASSIUM 4.2 MMOL/L (3.5-5.1); SODIUM 142 MMOL/L (135-145); TOTAL CARBON DIOXIDE 26.9 MMOL/L (24-32); eGFR 61 ML/MIN
[2018-02-20] MEDS: aspirin 325mg tablet, delayed-release (Ecotrin) PO SCH (08:00)
[2018-02-20] MEDS: multivitamins, therapeutics tablet PO SCH (08:00)
--- NOTE | 2018-02-20 08:00 | NUR ---
pt pulled out rios and MD notified. No noticeable trauma to urethra.
[2018-02-20] MEDS: normal saline 1000ml 1,000 ML IV SCH ×3 (09:52→23:15)
[2018-02-20] MEDS: levoTHYROXINE 25mcg tablet PO SCH (09:52)
[2018-02-20] MEDS: ALPRAZolam 0.25mg tablet PO PRN ×2 (11:17→17:26)
[2018-02-20 12:00] VITALS: BP 109/52
--- NOTE | 2018-02-20 16:00 | NUR ---
pt bladder scanned and 700ml present. notified and order for rios replacement was received.
[2018-02-20 18:00] VITALS: BP 129/42
--- NOTE | 2018-02-20 18:30 | NUR ---
Patient in room ORTHO 4018. I have received report from Gerda INIGUEZ and had the opportunity to ask questions and assume patient care.
[2018-02-20] MEDS: temazepam 15mg capsule PO PRN (20:03)
[2018-02-20 22:00] VITALS: BP 128/59
--- NOTE | 2018-02-20 23:22 | NUR ---
Patient was somewhat restless at beginning of shift and when checked on, found f/c had been completely pulled out. there was 425cc in gravity bag at this time. New F/c inserted using sterile technique and patient was given a bed bath and linen change.
[2018-02-21] MEDS: HYDROmorphone 1 mg/ml syringe IV PRN ×3 (00:11→13:02)
[2018-02-21] MEDS: ALPRAZolam 0.25mg tablet PO PRN ×2 (00:11→19:10)
[2018-02-21] MEDS: temazepam 15mg capsule PO PRN ×2 (00:22→21:11)
--- NOTE | 2018-02-21 01:27 | NUR ---
Unable to develop a plan with pt. d/t confusion/dementia. Addendum: 02/21/18 at 0131 by Leilani Snider RN Amended: Links added.
[2018-02-21] MEDS: HYDROcodone/acetaminophen 10/325mg tab PO PRN ×3 (03:56→21:11)
--- NOTE | 2018-02-21 04:00 | NUR ---
Patient straight cathed after bladder scan revealed 367cc (since pt. pulled out indwelling catheter earlier in shift). Drained out 380cc yellow urine, and post void residual =59cc..
[2018-02-21] MEDS: HYDROcodone/acetaminophen 5mg/325mg tablet PO PRN ×2 (04:33→19:11)
[2018-02-21 06:29] LABS: ALBUMIN 2.4 G/DL (3.4-5.0); ANION GAP 11 (8-16); BLOOD UREA NITROGEN 15 MG/DL (7-18); BUN/CREATININE RATIO 17.6 (6.6-38.0); CALCIUM 8.6 MG/DL (8.5-10.1); CHLORIDE 108 MMOL/L (99-107); CREATININE 0.85 MG/DL (0.40-0.90); GLUCOSE 139 MG/DL (70-104); POTASSIUM 3.9 MMOL/L (3.5-5.1); SODIUM 142 MMOL/L (135-145); TOTAL CARBON DIOXIDE 23.4 MMOL/L (24-32); eGFR 65 ML/MIN
--- NOTE | 2018-02-21 06:35 | NUR ---
RECEIVED REPORT FROM YARA INIGUEZ
--- NOTE | 2018-02-21 06:38 | NUR ---
Problems reprioritized. Patient report given, questions answered & plan of care reviewed with Codie INIGUEZ. Patient is currently sleeping.
[2018-02-21 07:53] LABS: BASOPHILS # (AUTO) 0.1 X10'3 (0-0.2); BASOPHILS % (AUTO) 0.6 % (0-1); EOSINOPHILS # (AUTO) 0.2 X10'3 (0-0.9); EOSINOPHILS % (AUTO) 2.6 % (0-6); HEMATOCRIT 23.4 % (35.0-45.0); HEMOGLOBIN 7.6 g/dl (12.0-16.0); LYMPHOCYTES # (AUTO) 0.8 X10'3 (1.1-4.8); LYMPHOCYTES % (AUTO) 9.2 % (21-51); MEAN CORPUSCULAR HEMOGLOBIN 31.4 PG (27.0-31.0); MEAN CORPUSCULAR HGB CONC 32.6 % (33.0-36.5); MEAN CORPUSCULAR VOLUME 96.2 FL (78-98); MEAN PLATELET VOLUME 7.9 FL (7.4-10.4); MONOCYTES # (AUTO) 0.8 X10'3 (0-0.9); MONOCYTES % (AUTO) 9.5 % (2-12); NEUTROPHILS # (AUTO) 6.9 X10'3 (1.8-7.7); NEUTROPHILS % (AUTO) 78.1 % (42-75); PLATELET COUNT 239 X10'3 (140-440); RED BLOOD COUNT 2.43 X10'6 (4.20-5.60); RED CELL DISTRIBUTION WIDTH 16.4 % (11.5-14.5); WHITE BLOOD COUNT 8.8 X10'3 (4.5-11.0)
[2018-02-21] MEDS: aspirin 325mg tablet, delayed-release (Ecotrin) PO SCH (08:00)
[2018-02-21] MEDS: multivitamins, therapeutics tablet PO SCH (08:00)
[2018-02-21] MEDS: levoTHYROXINE 25mcg tablet PO SCH (08:00)
[2018-02-21 10:00] VITALS: BP 140/58
--- NOTE | 2018-02-21 14:00 | NUR ---
Patient was bladder scanned had over 500. Dr. Taylor was called and gave orders to straight cath patient. when bladder scanned reaches over 500
--- NOTE | 2018-02-21 14:34 | NUR ---
Initial: Pt admit w/ multiple medical complaints and femur fx s/p repair. Hx dementia and not appropriate for ed post-op also refused MVI. PO 0-25% regular diet w/ ensure high protein TIDWM added for additional protein needs. NGOC d/w RN for new A1C given last <7 taken 2016. New A1C pending. Will continue to monitor. Rec; 1. continue regular diet 2. ensure high protein TIDWM 3. wt per rx Addendum: 02/21/18 at [address] Amended: Links added.
--- NOTE | 2018-02-21 17:00 | NUR ---
BLADDER SCANNED PATIENT A TOTAL OF 365ml. WILL STRAIGHT CATH AT 500
[2018-02-21 18:00] VITALS: BP 129/77
--- NOTE | 2018-02-21 18:25 | NUR ---
Received report from Codie INIGUEZ, assumed care of patient.
[2018-02-21] MEDS: normal saline 1000ml 1,000 ML IV SCH (19:56)
[2018-02-21 22:00] VITALS: BP 140/52
[2018-02-22] MEDS: temazepam 15mg capsule PO PRN ×2 (00:05→22:09)
[2018-02-22] MEDS: HYDROcodone/acetaminophen 5mg/325mg tablet PO PRN (00:08)
[2018-02-22] MEDS: HYDROcodone/acetaminophen 10/325mg tab PO PRN ×3 (04:55→20:10)
[2018-02-22] MEDS: ALPRAZolam 0.25mg tablet PO PRN ×4 (04:55→23:12)
[2018-02-22 06:00] VITALS: BP 112/43
[2018-02-22 06:09] LABS: ALBUMIN 2.4 G/DL (3.4-5.0); ANION GAP 10 (8-16); BLOOD UREA NITROGEN 13 MG/DL (7-18); BUN/CREATININE RATIO 18.8 (6.6-38.0); CALCIUM 8.8 MG/DL (8.5-10.1); CHLORIDE 109 MMOL/L (99-107); CREATININE 0.69 MG/DL (0.40-0.90); GLUCOSE 112 MG/DL (70-104); POTASSIUM 3.7 MMOL/L (3.5-5.1); SODIUM 144 MMOL/L (135-145); TOTAL CARBON DIOXIDE 24.6 MMOL/L (24-32); eGFR 82 ML/MIN
[2018-02-22 06:14] LABS: BASOPHILS % (AUTO) 0.5 % (0-1); EOSINOPHILS # (AUTO) 0.2 X10'3 (0-0.9); EOSINOPHILS % (AUTO) 2.9 % (0-6); HEMATOCRIT 24.2 % (35.0-45.0); HEMOGLOBIN 7.9 g/dl (12.0-16.0); LYMPHOCYTES # (AUTO) 1.1 X10'3 (1.1-4.8); LYMPHOCYTES % (AUTO) 15.1 % (21-51); MEAN CORPUSCULAR HEMOGLOBIN 30.4 PG (27.0-31.0); MEAN CORPUSCULAR HGB CONC 32.4 % (33.0-36.5); MEAN CORPUSCULAR VOLUME 93.9 FL (78-98); MEAN PLATELET VOLUME 7.6 FL (7.4-10.4); MONOCYTES # (AUTO) 0.6 X10'3 (0-0.9); MONOCYTES % (AUTO) 8.9 % (2-12); NEUTROPHILS # (AUTO) 5.3 X10'3 (1.8-7.7); NEUTROPHILS % (AUTO) 72.6 % (42-75); PLATELET COUNT 214 X10'3 (140-440); RED BLOOD COUNT 2.58 X10'6 (4.20-5.60); RED CELL DISTRIBUTION WIDTH 16.2 % (11.5-14.5); WHITE BLOOD COUNT 7.2 X10'3 (4.5-11.0)
--- NOTE | 2018-02-22 06:17 | NUR ---
Report given to Loli INIGUEZ.
--- NOTE | 2018-02-22 06:24 | NUR ---
Report given to Codie INIGUEZ.
[2018-02-22] MEDS: lactose-reduced food (Ensure High Protein) 237ml bottle PO SCH ×3 (08:18→18:00)
[2018-02-22] MEDS: levoTHYROXINE 25mcg tablet PO SCH (08:22)
[2018-02-22] MEDS: multivitamins, therapeutics tablet PO SCH (08:22)
[2018-02-22] MEDS: aspirin 325mg tablet, delayed-release (Ecotrin) PO SCH (08:22)
[2018-02-22] MEDS: normal saline 1000ml 1,000 ML IV SCH (09:21)
[2018-02-22 10:00] VITALS: BP 111/37
[2018-02-22 18:00] VITALS: BP 163/78
--- NOTE | 2018-02-22 18:15 | NUR ---
RECEIVED REPORT FROM JORGE INIGUEZ AND ASSUMED PATIENT CARE
--- NOTE | 2018-02-22 18:18 | NUR ---
Report to Lina INIGUEZ
--- NOTE | 2018-02-22 21:00 | NUR ---
BLADDER SCANNED PATIENT. 756ML'S IN BLADDER. ASSISTED PATIENT TO BEDSIDE COMMODE WHERE SHE WAS UNABLE TO VOID. ASSISTED BACK IN BED AND STRAIGHT CATHETERIZED PATIENT PER MD ORDER. 400ML'S OF CLEAR YELLOW URINE OUT. BLADDER SCANNED PATIENT AGAIN SHOWING 43ML'S IN BLADDER. WILL CLOSELY MONITOR.
[2018-02-22 22:00] VITALS: BP 165/77
[2018-02-23] MEDS: normal saline 1000ml 1,000 ML IV SCH ×3 (00:41→16:50)
[2018-02-23] MEDS: HYDROcodone/acetaminophen 5mg/325mg tablet PO PRN (00:42)
[2018-02-23] MEDS: HYDROcodone/acetaminophen 10/325mg tab PO PRN ×4 (05:40→21:18)
[2018-02-23 06:00] VITALS: BP 145/49
--- NOTE | 2018-02-23 06:13 | NUR ---
REPORT GIVEN TO RAQUEL INIGUEZ
--- NOTE | 2018-02-23 06:29 | NUR ---
REPORT GIVEN TO RAQUEL INIGUEZ
[2018-02-23] MEDS: magnesium hydroxide 30ml (MOM) UD suspension PO PRN (08:27)
[2018-02-23] MEDS: aspirin 325mg tablet, delayed-release (Ecotrin) PO SCH (08:27)
[2018-02-23] MEDS: levoTHYROXINE 25mcg tablet PO SCH (08:28)
[2018-02-23] MEDS: lactose-reduced food (Ensure High Protein) 237ml bottle PO SCH ×3 (08:28→18:00)
[2018-02-23] MEDS: multivitamins, therapeutics tablet PO SCH (08:28)
[2018-02-23 10:48] VITALS: BP 103/36
[2018-02-23] MEDS: ALPRAZolam 0.25mg tablet PO PRN (13:07)
[2018-02-23] MEDS ORDERED: morphine 2 MG/ML inj. syringe IV ONE (13:30)
[2018-02-23] MEDS ORDERED: morphine 4 MG/ML inj SYRINge IV ONE (13:45)
[2018-02-23 18:00] VITALS: BP 144/44
--- NOTE | 2018-02-23 18:40 | NUR ---
Patient in room ORTHO 4018. I have received report from HIRA Garcia and had the opportunity to ask questions and assume patient care.
[2018-02-23] MEDS: docusate sod 100mg capsule PO SCH (19:47)
[2018-02-23] MEDS: temazepam 15mg capsule PO PRN (21:42)
[2018-02-23 22:00] VITALS: BP 120/57
[2018-02-24] MEDS: ALPRAZolam 0.25mg tablet PO PRN ×2 (01:02→19:27)
[2018-02-24] MEDS: HYDROcodone/acetaminophen 10/325mg tab PO PRN ×4 (02:42→22:06)
[2018-02-24] MEDS: normal saline 1000ml 1,000 ML IV SCH (05:00)
[2018-02-24] MEDS: HYDROmorphone 1 mg/ml syringe IV PRN ×2 (05:21→13:19)
[2018-02-24 06:00] VITALS: BP 106/51
[2018-02-24 06:35] LABS: BASOPHILS % (AUTO) 0.7 % (0-1); EOSINOPHILS # (AUTO) 0.2 X10'3 (0-0.9); EOSINOPHILS % (AUTO) 3.3 % (0-6); HEMATOCRIT 22.6 % (35.0-45.0); HEMOGLOBIN 7.1 g/dl (12.0-16.0); LYMPHOCYTES # (AUTO) 1.2 X10'3 (1.1-4.8); LYMPHOCYTES % (AUTO) 19.4 % (21-51); MEAN CORPUSCULAR HEMOGLOBIN 29.1 PG (27.0-31.0); MEAN CORPUSCULAR HGB CONC 31.5 % (33.0-36.5); MEAN CORPUSCULAR VOLUME 92.4 FL (78-98); MEAN PLATELET VOLUME 7.7 FL (7.4-10.4); MONOCYTES # (AUTO) 0.6 X10'3 (0-0.9); NEUTROPHILS % (AUTO) 66.6 % (42-75); PLATELET COUNT 262 X10'3 (140-440); RED BLOOD COUNT 2.45 X10'6 (4.20-5.60); RED CELL DISTRIBUTION WIDTH 16.9 % (11.5-14.5)
--- NOTE | 2018-02-24 06:35 | NUR ---
Problems reprioritized. Patient report given, questions answered & plan of care reviewed with HIRA Garcia.
[2018-02-24 06:53] LABS: ALBUMIN 2.1 G/DL (3.4-5.0); ANION GAP 8 (8-16); BLOOD UREA NITROGEN 12 MG/DL (7-18); BUN/CREATININE RATIO 17.6 (6.6-38.0); CALCIUM 8.2 MG/DL (8.5-10.1); CHLORIDE 109 MMOL/L (99-107); CREATININE 0.68 MG/DL (0.40-0.90); GLUCOSE 124 MG/DL (70-104); POTASSIUM 3.8 MMOL/L (3.5-5.1); SODIUM 143 MMOL/L (135-145); eGFR 84 ML/MIN
[2018-02-24] MEDS: lactose-reduced food (Ensure High Protein) 237ml bottle PO SCH ×3 (08:00→18:00)
[2018-02-24] MEDS: docusate sod 100mg capsule PO SCH ×2 (09:34→19:27)
[2018-02-24] MEDS: levoTHYROXINE 25mcg tablet PO SCH (09:34)
[2018-02-24] MEDS: aspirin 325mg tablet, delayed-release (Ecotrin) PO SCH (09:34)
[2018-02-24] MEDS: magnesium hydroxide 30ml (MOM) UD suspension PO PRN (09:35)
[2018-02-24] MEDS: multivitamins, therapeutics tablet PO SCH (09:35)
--- NOTE | 2018-02-24 10:06 | NUR ---
Reassessment: Pt continues on regular diet with fluctuating PO intake, averaging 25-50% with 75-100% intake of Ensure High Protein meeting nutrient needs. LBM 02/17, pt just started with routine Colace 02/23 and MoM PRN last given 02/24. Will continue to follow and monitor need for additional bowel care. Rec; 1. continue regular diet 2. ensure high protein TIDWM 3. wt per rx Addendum: 02/24/18 at [address] Amended: Links added.
--- NOTE | 2018-02-24 13:15 | NUR ---
third page to PT asking them to get pt back to bed. Concern for skin breakdown due to inability to turn reposition
[2018-02-24] MEDS ORDERED: bisacodyl 10mg suppository rectal RC STA (15:15)
[2018-02-24 18:00] VITALS: BP 161/84
--- NOTE | 2018-02-24 18:30 | NUR ---
Patient in room ORTHO 4018. I have received report from HIRA Garcia and had the opportunity to ask questions and assume patient care.
[2018-02-24] MEDS: temazepam 15mg capsule PO PRN (19:27)
[2018-02-24 22:00] VITALS: BP 132/41
[2018-02-25] MEDS: HYDROcodone/acetaminophen 10/325mg tab PO PRN ×3 (01:53→14:32)
[2018-02-25] MEDS: ALPRAZolam 0.25mg tablet PO PRN ×3 (01:53→23:53)
[2018-02-25 06:00] VITALS: BP 136/49
--- NOTE | 2018-02-25 06:29 | NUR ---
Problems reprioritized. Patient report given, questions answered & plan of care reviewed with HIRA Garcia.
[2018-02-25 07:45] LABS: BASOPHILS % (AUTO) 0.5 % (0-1); EOSINOPHILS # (AUTO) 0.1 X10'3 (0-0.9); EOSINOPHILS % (AUTO) 1.9 % (0-6); HEMATOCRIT 24.8 % (35.0-45.0); HEMOGLOBIN 7.8 g/dl (12.0-16.0); LYMPHOCYTES # (AUTO) 0.8 X10'3 (1.1-4.8); LYMPHOCYTES % (AUTO) 12.4 % (21-51); MEAN CORPUSCULAR HEMOGLOBIN 28.9 PG (27.0-31.0); MEAN CORPUSCULAR HGB CONC 31.3 % (33.0-36.5); MEAN CORPUSCULAR VOLUME 92.2 FL (78-98); MEAN PLATELET VOLUME 8.1 FL (7.4-10.4); MONOCYTES # (AUTO) 0.4 X10'3 (0-0.9); MONOCYTES % (AUTO) 6.4 % (2-12); NEUTROPHILS # (AUTO) 4.8 X10'3 (1.8-7.7); NEUTROPHILS % (AUTO) 78.8 % (42-75); PLATELET COUNT 289 X10'3 (140-440); RED BLOOD COUNT 2.69 X10'6 (4.20-5.60); RED CELL DISTRIBUTION WIDTH 18.2 % (11.5-14.5); WHITE BLOOD COUNT 6.1 X10'3 (4.5-11.0)
[2018-02-25 07:46] LABS: ALBUMIN 2.1 G/DL (3.4-5.0); ANION GAP 7 (8-16); BLOOD UREA NITROGEN 13 MG/DL (7-18); BUN/CREATININE RATIO 16.9 (6.6-38.0); CALCIUM 8.3 MG/DL (8.5-10.1); CHLORIDE 109 MMOL/L (99-107); CREATININE 0.77 MG/DL (0.40-0.90); GLUCOSE 123 MG/DL (70-104); POTASSIUM 4.1 MMOL/L (3.5-5.1); SODIUM 144 MMOL/L (135-145); TOTAL CARBON DIOXIDE 27.6 MMOL/L (24-32); eGFR 73 ML/MIN
[2018-02-25] MEDS: lactose-reduced food (Ensure High Protein) 237ml bottle PO SCH ×3 (08:00→18:00)
[2018-02-25] MEDS: docusate sod 100mg capsule PO SCH ×2 (09:59→20:00)
[2018-02-25] MEDS: levoTHYROXINE 75mcg tablet PO SCH (09:59)
[2018-02-25] MEDS: aspirin 325mg tablet, delayed-release (Ecotrin) PO SCH (09:59)
[2018-02-25] MEDS: multivitamins, therapeutics tablet PO SCH (09:59)
[2018-02-25 10:00] VITALS: BP 152/77
[2018-02-25] MEDS ORDERED: HYDROmorphone inj. 0.5 MG/0.5 ML DISP.SYRIN IV ONE (10:50)
[2018-02-25] MEDS: ibuprofen tablet 400 MG TABLET PO SCH ×3 (16:21→20:07)
--- NOTE | 2018-02-25 16:38 | NUR ---
[address]olm- bladder hrxk=977 ml, straight cath? Addendum: 02/25/18 at 1841 by Mai Smith RN per DR Rosemary cross to replace fc
--- NOTE | 2018-02-25 17:45 | NUR ---
replaced 16 fr FC pt tolerated well. 500 ml turbid dark yellow urine return.
[2018-02-25] MEDS: oxyCODONE/APAP 10/325mg tablet PO PRN (17:47)
[2018-02-25 18:00] VITALS: BP 148/62
[2018-02-25 18:58] LABS: CLARITY,URINE CLOUDY (Clear); COLOR,URINE YELLOW (Yellow); GLUCOSE, URINE NEGATIVE (Neg); KETONES,URINE NEGATIVE (Neg); LEUKOCYTE ESTERASE ,URINE LARGE (Neg); NITRITES, URINE POSITIVE (Neg); OCCULT BLOOD,URINE LARGE (Neg); PROTEIN,URINE 100 mg/dl (Neg)
[2018-02-25 18:59] LABS: UA COLLECTION TYPE VOIDED
[2018-02-25 19:08] LABS: WBC,URINE TNTC /HPF (0-4)
[2018-02-25 19:12] LABS: BACTERIA,URINE 3+ /HPF (Neg); MUCUS STRANDS FEW /LPF (Neg); SQUAMOUS EPITHELIAL CELL,UR FEW /LPF (FEW)
[2018-02-25] MEDS: CefTRIAXone/D5W-Rocephin 1gm 50 ML IV SCH (20:07)
[2018-02-25] MEDS: temazepam 15mg capsule PO PRN (21:01)
[2018-02-25 22:00] VITALS: BP 82/31
[2018-02-25 22:40] VITALS: BP 96/47
[2018-02-26] MEDS: oxyCODONE/APAP 10/325mg tablet PO PRN ×3 (05:22→18:41)
[2018-02-26 06:00] VITALS: BP 97/47
--- NOTE | 2018-02-26 06:20 | NUR ---
Problems reprioritized. Patient report given, questions answered & plan of care reviewed with HIRA Alvarez.
[2018-02-26 06:54] LABS: ALBUMIN 2.2 G/DL (3.4-5.0); ANION GAP 7 (8-16); BLOOD UREA NITROGEN 16 MG/DL (7-18); BUN/CREATININE RATIO 21.6 (6.6-38.0); CALCIUM 8.5 MG/DL (8.5-10.1); CHLORIDE 106 MMOL/L (99-107); CREATININE 0.74 MG/DL (0.40-0.90); GLUCOSE 124 MG/DL (70-104); POTASSIUM 3.8 MMOL/L (3.5-5.1); SODIUM 142 MMOL/L (135-145); TOTAL CARBON DIOXIDE 28.7 MMOL/L (24-32); eGFR 76 ML/MIN
[2018-02-26] MEDS: docusate sod 100mg capsule PO SCH ×2 (07:45→20:00)
[2018-02-26] MEDS: multivitamins, therapeutics tablet PO SCH (07:47)
[2018-02-26] MEDS: pantoprazole 40mg Tablet.DR PO SCH (07:47)
[2018-02-26] MEDS: aspirin 325mg tablet, delayed-release (Ecotrin) PO SCH (07:47)
[2018-02-26] MEDS: levoTHYROXINE 75mcg tablet PO SCH (07:47)
[2018-02-26] MEDS: CefTRIAXone/D5W-Rocephin 1gm 50 ML IV SCH (07:47)
[2018-02-26] MEDS: lactose-reduced food (Ensure High Protein) 237ml bottle PO SCH ×3 (08:07→18:44)
[2018-02-26] MEDS: ALPRAZolam 0.25mg tablet PO PRN ×2 (09:10→15:41)
[2018-02-26 10:00] VITALS: BP 134/68
[2018-02-26] MEDS: Potassium Cl inj 20 MEQ in normal saline 1000ml 990 ML IV SCH ×2 (10:29→21:59)
--- NOTE | 2018-02-26 18:28 | NUR ---
Problems reprioritized. Patient report given, questions answered & plan of care reviewed with Heidi INIGUEZ.
[2018-02-26 18:30] VITALS: BP 154/55
[2018-02-26] MEDS: lactobacillus rhamnosus 10,000 MMU CELLS/CAPSULE PO SCH (20:17)
[2018-02-26] MEDS: temazepam 15mg capsule PO PRN (20:17)
[2018-02-26] MEDS: ibuprofen tablet 400 MG TABLET PO PRN (21:56)
[2018-02-26 23:00] VITALS: BP 114/40
[2018-02-27] MEDS: ALPRAZolam 0.25mg tablet PO PRN ×2 (01:02→09:55)
[2018-02-27] MEDS: oxyCODONE/APAP 10/325mg tablet PO PRN ×2 (04:38→09:55)
[2018-02-27 06:00] VITALS: BP 139/58
[2018-02-27 06:47] LABS: ALBUMIN 2.1 G/DL (3.4-5.0); ANION GAP 8 (8-16); BLOOD UREA NITROGEN 15 MG/DL (7-18); BUN/CREATININE RATIO 20.3 (6.6-38.0); CALCIUM 8.3 MG/DL (8.5-10.1); CHLORIDE 107 MMOL/L (99-107); CREATININE 0.74 MG/DL (0.40-0.90); GLUCOSE 136 MG/DL (70-104); POTASSIUM 3.9 MMOL/L (3.5-5.1); SODIUM 143 MMOL/L (135-145); TOTAL CARBON DIOXIDE 27.7 MMOL/L (24-32); eGFR 76 ML/MIN
[2018-02-27] MEDS: docusate sod 100mg capsule PO SCH (08:04)
[2018-02-27] MEDS: multivitamins, therapeutics tablet PO SCH (08:04)
[2018-02-27] MEDS: pantoprazole 40mg Tablet.DR PO SCH (08:04)
[2018-02-27] MEDS: lactobacillus rhamnosus 10,000 MMU CELLS/CAPSULE PO SCH (08:04)
[2018-02-27] MEDS: ibuprofen tablet 400 MG TABLET PO PRN (08:04)
[2018-02-27] MEDS: levoTHYROXINE 75mcg tablet PO SCH (08:04)
[2018-02-27] MEDS: aspirin 325mg tablet, delayed-release (Ecotrin) PO SCH (08:04)
[2018-02-27] MEDS: CefTRIAXone/D5W-Rocephin 1gm 50 ML IV SCH (08:04)
[2018-02-27] MEDS: lactose-reduced food (Ensure High Protein) 237ml bottle PO SCH ×2 (08:16→12:59)
[2018-02-27] MEDS: Potassium Cl inj 20 MEQ in normal saline 1000ml 990 ML IV SCH (09:30)
[2018-02-27 10:00] VITALS: BP 124/48
[2018-02-27] MEDS ORDERED: LEVO500T2 PO (11:35)
[2018-02-27] MEDS ORDERED: COL100C PO (11:35)
[2018-02-27] MEDS ORDERED: LEVO75TA7 PO (11:35)
[2018-02-27] MEDS ORDERED: PER10325T PO (11:35)
--- NOTE | 2018-02-27 14:32 | NUR ---
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 Given the information for Infectious control from Case management in case of questions. MRSA CDC information sent to Sylvia.
--- NOTE | 2018-02-27 15:07 | NUR ---
Discharge instructions given to patient family member, No tele, IV removed.
== END 2018-02-27 15:05 | disposition home health service (06) | DRG 481 ==
LOC: ER 09:02 → ED HOLD 11:11 → ORTHO 4S 14:33
PROVIDERS: ADMIT Hospitalist; ATTEND Internal Medicine
PROC: 0QS606Z Reposition Right Upper Femur with Intramedullary Internal Fixation Device, Open Approach (ICD-10-PCS; principal; 2018-02-18 10:52)
DX: S72.141A Displaced intertrochanteric fracture of right femur, initial encounter for closed fracture (principal); D62 Acute posthemorrhagic anemia; N39.0 Urinary tract infection, site not specified; F03.90 Unspecified dementia, unspecified severity, without behavioral disturbance, psychotic disturbance, mood disturbance, and anxiety; E03.9 Hypothyroidism, unspecified; B96.20 Unspecified Escherichia coli [E. coli] as the cause of diseases classified elsewhere; E11.9 Type 2 diabetes mellitus without complications; G89.29 Other chronic pain; M54.9 Dorsalgia, unspecified; R00.1 Bradycardia, unspecified; S00.83XA Contusion of other part of head, initial encounter; R94.6 Abnormal results of thyroid function studies; I10 Essential (primary) hypertension; R33.9 Retention of urine, unspecified; Z60.2 Problems related to living alone; K59.09 Other constipation; W18.39XA Other fall on same level, initial encounter; Z66 Do not resuscitate; Z90.710 Acquired absence of both cervix and uterus; Z99.3 Dependence on wheelchair; Z79.899 Other long term (current) drug therapy; Z79.82 Long term (current) use of aspirin; Z83.3 Family history of diabetes mellitus; Y93.89 Activity, other specified; Y92.89 Other specified places as the place of occurrence of the external cause; Y99.8 Other external cause status
CPT/HCPCS: 27187; 36415; 70450; 71045; 72170; 73502; 73552; 74022; 76000; 80048; 80053; 81001; 81003; 84443; 85025; 85027; 85610; 85730; 86885; 86900; 86901; 87070; 87077; 87088; 87186; 93005; 96374; 96375; 97110; 97162; 97530; 99285; A4615; A7000; G0378; J0461; J0690; J0696; J1170; J2060; J2250; J2270; J2405; J3010; J3480; J7030; J7120

== ENCOUNTER 2018-03-04 02:40 | Emergency (ER) | payer MEDICARE, OTHER ==
[~2018-03-04] VITALS: Ht 162.6 cm; Wt 63.0 kg
[~2018-03-04 02:40] MED LIST changes: -ACET-2119 PO; +ALPR-160 PO; -ATOR10TA PO; -CEPH500C5 PO; +COL100C PO; -FURO40TA4 PO; +LEVO500T2 PO; -LEVO50TA8 PO; +LEVO75TA7 PO; -MAGN400O6 PO; +PER10325T PO; -POTA10CA44 PO; -SYN0.088T PO; -TEMA15CA5 PO
[2018-03-04 03:28] VITALS: BP 114/58
--- NOTE | 2018-03-04 03:30 | NUR ---
noted during cath insertion that patient had some prolapse of the bladder, ERP was informed
[2018-03-04] MEDS ORDERED: HYDROcodone/acetaminophen 5mg/325mg tablet PO ONE (04:55)
[2018-03-04] MEDS ORDERED: LORazepam 2 mg/ml vial IM ONE (05:00)
--- NOTE | 2018-03-04 05:15 | NUR ---
[facility] here to transport patient, call placed to Adriana @ [facility] to update
== END 2018-03-04 05:17 | disposition home or self-care (01) ==
LOC: ER 02:40
DX: T83.098A Other mechanical complication of other urinary catheter, initial encounter (principal); I10 Essential (primary) hypertension; E11.9 Type 2 diabetes mellitus without complications; F03.90 Unspecified dementia, unspecified severity, without behavioral disturbance, psychotic disturbance, mood disturbance, and anxiety; G89.29 Other chronic pain; Z90.710 Acquired absence of both cervix and uterus; Z79.82 Long term (current) use of aspirin; Z79.899 Other long term (current) drug therapy; Y92.89 Other specified places as the place of occurrence of the external cause
CPT/HCPCS: 51702; 96372; 99284; J2060

== ENCOUNTER 2018-03-22 16:39 | Emergency (ER) | payer MEDICARE, OTHER ==
[~2018-03-22] VITALS: Ht 160 cm; Wt 55.0 kg
[~2018-03-22 16:39] MED LIST changes: -LEVO500T2 PO
[2018-03-22 17:44] VITALS: BP 119/45
== END 2018-03-22 19:16 | disposition home or self-care (01) ==
LOC: ER 16:40
DX: R33.9 Retention of urine, unspecified (principal); I10 Essential (primary) hypertension; E11.9 Type 2 diabetes mellitus without complications; G89.29 Other chronic pain; Z90.710 Acquired absence of both cervix and uterus; Z98.890 Other specified postprocedural states; Z79.899 Other long term (current) drug therapy; Z79.82 Long term (current) use of aspirin
CPT/HCPCS: 51702; 99284